=== PATIENT | male | born 1960 ===

== ENCOUNTER 2025-08-06 22:34 | Emergency (ER) | payer SELFPAY ==
[~2025-08-06] VITALS: Ht 177.8 cm; Wt 81.8 kg
[2025-08-06 23:11] VITALS: BP 139/80; PULSE 92; RESP 18; TEMP 98.2; O2SAT 96
== END 2025-08-06 23:26 | disposition left against medical advice (07) ==
LOC: EMS 22:34
DX: Z02.89 Encounter for other administrative examinations (principal)
CPT/HCPCS: 99281; Z7502